=== PATIENT | male | born 1985 | race Caucasian/White ===

== ENCOUNTER 2021-07-16 10:12 | Inpatient (IN) | payer MEDICAID, OTHER ==
[~2021-07-16] VITALS: Ht 172.7 cm; Wt 104.9 kg
[2021-07-16 12:48] LABS: ANION GAP 7 mmol/L (8-16); CALCIUM, TOTAL 9.1 mg/dL (8.8-10.5); CARBON DIOXIDE 31 mmol/L (22-29); CHLORIDE 103 mmol/L (98-107); CREATININE 0.86 mg/dL (0.60-1.30); GLOMERULAR FILTR. RATE CALC > 60 mL/min (>60); GLUCOSE,RANDOM 152 mg/dL (70-110); POTASSIUM 3.9 mmol/L (3.5-5.1); SODIUM SERUM 141 mmol/L (136-145); UREA NITROGEN, BLOOD 17 mg/dL (7-18)
[2021-07-16 12:53] LABS: ALANINE AMINOTRANSFERASE 39 U/L (12-78); ALBUMIN 4.2 g/dL (3.4-5.0); ALKALINE PHOSPHATASE 85 U/L (46-116); ASPARTATE AMINOTRANSFERASE 23 U/L (15-37); TOTAL PROTEIN, SERUM 8.3 g/dL (6.4-8.2)
[2021-07-16 13:02] LABS: AMPHET/METH SCREEN,URINE POSITIVE (NEGATIVE); BARBITURATE SCREEN, URINE NEGATIVE (NEGATIVE); BENZODIAZEPINES SCREEN,URINE NEGATIVE (NEGATIVE); CANNABINOID SCREEN,URINE POSITIVE (NEGATIVE); COCAINE SCREEN,URINE NEGATIVE (NEGATIVE); METHADONE SCREEN, URINE NEGATIVE (NEGATIVE); OPIATE SCREEN,URINE NEGATIVE (NEGATIVE)
[2021-07-16 13:03] LABS: PHENCYCLIDINE SCREEN,URINE NEGATIVE (NEGATIVE)
[2021-07-16 14:16] LABS: BASOPHILS % (AUTO) 0.3 % (0.0-2.0); HEMATOCRIT 46.4 % (41-53); HEMOGLOBIN 16.7 g/dL (13.5-17.5); LYMPHOCYTES # (AUTO) 1.6 K/uL (1.0-4.8); MEAN CORPUSCULAR HEMOGLOBIN 31.4 pg (26.0-34.0); MEAN CORPUSCULAR HGB CONC 35.9 G/dL (31.0-37.0); MEAN CORPUSCULAR VOLUME 87 fL (80-100); MONOCYTES # (AUTO) 0.4 K/uL (0.1-1.0); MONOCYTES % (AUTO) 4.8 % (2.0-9.0); NEUTROPHILS # (AUTO) 7.1 K/uL (1.8-7.7); NEUTROPHILS % (AUTO) 76.9 % (40.0-70.0); PLATELET COUNT (AUTO) 164 K/uL (150-450); RED BLOOD CELL COUNT(AUTO) 5.31 MIL/uL (4.50-5.90); RED CELL DISTRIBUTION WIDTH 13.5 % (11.5-14.5)
[2021-07-16 15:25] LABS: COVID AG,FIA SOURCE NASOPHARYNGEAL
[2021-07-16] MEDS ORDERED: ZOLPIDEM TARTRATE 10 MG TABLET PO PRN (15:30)
[2021-07-16] MEDS ORDERED: HALOPERIDOL 5 MG TABLET PO PRN (15:30)
[2021-07-16] MEDS ORDERED: PNEUMOCOCCAL VACCINE POLYVALENT 0.5 ML VIAL [PPSV23] IM. ONE (17:45)
[2021-07-16] MEDS ORDERED: DEXTROSE 50%-WATER 25 GM/50 ML SYRINGE IVP PRN (17:45)
[2021-07-16 17:54] VITALS: BP 155/101
[2021-07-16 21:31] LABS: GLUCOMETER DEV NAME(LOC) 3E.C; GLUCOSE,POINT OF CARE 213 MG/DL (70-110)
[2021-07-17 06:06] LABS: GLUCOMETER DEV NAME(LOC) 3E.C; GLUCOSE,POINT OF CARE 175 MG/DL (70-110)
[2021-07-17 08:01] VITALS: BP 142/97
[2021-07-17] MEDS ORDERED: GuaiFENesin/D-METHORPHAN [SUGAR-FREE] 200-20MG/10 ML SYRUP UDCUP PO PRN (11:45)
[2021-07-17] MEDS ORDERED: ACETAMINOPHEN 325 MG TABLET PO PRN (11:45)
[2021-07-17] MEDS ORDERED: MAG HYDROX/AL HYDROX/SIMETH ES 30 ML SUSPENSION UDCUP PO PRN (11:45)
[2021-07-17] MEDS ORDERED: PETROLATUM,WHITE 28 GM JELLY TP PRN (11:45)
[2021-07-17] MEDS ORDERED: IBUPROFEN 400 MG TABLET PO PRN (11:45)
[2021-07-17] MEDS ORDERED: DOCUSATE SODIUM 100 MG CAPSULE PO PRN (11:45)
[2021-07-17] MEDS ORDERED: ALBUTEROL SULFATE HFA 90 MCG/PUFF 8 GM INHALER IH PRN (11:45)
[2021-07-17] MEDS ORDERED: ONDANSETRON HCL 4 MG TABLET PO PRN (11:45)
[2021-07-17] MEDS ORDERED: CloNIDine HCL 0.1 MG TABLET PO PRN (11:45)
[2021-07-17] MEDS ORDERED: NICOTINE 14 MG/24 HOUR PATCH TD PRN (11:45)
[2021-07-17] MEDS ORDERED: MAGNESIUM HYDROXIDE SUSPENSION 30 ML UDCUP PO PRN (11:45)
[2021-07-17] MEDS ORDERED: LOPERAMIDE HCL 2 MG CAPSULE PO PRN (11:45)
[2021-07-17 12:57] LABS: GLUCOMETER DEV NAME(LOC) 3E.C; GLUCOSE,POINT OF CARE 204 MG/DL (70-110)
[2021-07-17] MEDS ORDERED: HALOPERIDOL LACTATE 5 MG/ML VIAL ONE (13:15)
[2021-07-17] MEDS ORDERED: DiphenhydrAMINE HCL 50 MG/ML VIAL ONE (13:15)
[2021-07-17] MEDS ORDERED: LORazepam 2 MG/ML VIAL ONE (13:15)
[2021-07-17] MEDS ORDERED: DiphenhydrAMINE HCL 50 MG/ML VIAL IM ONE (13:45)
[2021-07-17] MEDS ORDERED: HALOPERIDOL LACTATE 5 MG/ML VIAL IM ONE (13:45)
[2021-07-17] MEDS ORDERED: LORazepam 2 MG/ML VIAL IM ONE (13:45)
[2021-07-17] MEDS ORDERED: BENZ1TAB96 PO (15:31)
[2021-07-17] MEDS ORDERED: HALO5TAB2 PO (15:31)
[2021-07-17] MEDS: BENZTROPINE MESYLATE 1 MG TABLET PO SCH (17:00)
[2021-07-17] MEDS: HALOPERIDOL 5 MG TABLET PO SCH (17:00)
[2021-07-17 17:56] LABS: GLUCOMETER DEV NAME(LOC) 3E.C; GLUCOSE,POINT OF CARE 163 MG/DL (70-110)
[2021-07-17 21:00] LABS: GLUCOMETER DEV NAME(LOC) 3E.C; GLUCOSE,POINT OF CARE 185 MG/DL (70-110)
[2021-07-18] MEDS: BENZTROPINE MESYLATE 1 MG TABLET PO SCH ×3 (09:00→17:55)
[2021-07-18] MEDS: HALOPERIDOL 5 MG TABLET PO SCH ×2 (09:00→16:26)
[2021-07-18] MEDS: INSULIN LISPRO 100 UNITS/ML SQ PRN (12:45)
[2021-07-18 12:51] LABS: GLUCOMETER DEV NAME(LOC) 3E.C; GLUCOSE,POINT OF CARE 217 MG/DL (70-110)
[2021-07-18 16:23] VITALS: BP 140/86
[2021-07-18] MEDS: LORazepam 2 MG TABLET PO PRN (19:30)
[2021-07-19 06:41] LABS: GLUCOMETER DEV NAME(LOC) 3E.C; GLUCOSE,POINT OF CARE 118 MG/DL (70-110)
[2021-07-19] MEDS: INSULIN LISPRO 100 UNITS/ML SQ PRN (06:44)
[2021-07-19 08:21] VITALS: BP 115/82
[2021-07-19] MEDS: BENZTROPINE MESYLATE 1 MG TABLET PO SCH ×2 (08:56→16:34)
[2021-07-19] MEDS: HALOPERIDOL 5 MG TABLET PO SCH ×2 (08:56→16:34)
[2021-07-19 11:31] LABS: GLUCOMETER DEV NAME(LOC) 3E.C; GLUCOSE,POINT OF CARE 143 MG/DL (70-110)
[2021-07-19 16:08] VITALS: BP 141/78
[2021-07-19] MEDS: LORazepam 2 MG TABLET PO PRN (19:00)
[2021-07-20 04:46] LABS: GLUCOMETER DEV NAME(LOC) 3E.C; GLUCOSE,POINT OF CARE 116 MG/DL (70-110)
[2021-07-20 08:08] VITALS: BP 140/74
[2021-07-20] MEDS: BENZTROPINE MESYLATE 1 MG TABLET PO SCH ×2 (10:19→16:37)
[2021-07-20] MEDS: HALOPERIDOL 5 MG TABLET PO SCH ×2 (10:19→16:37)
[2021-07-20] MEDS: LORazepam 2 MG TABLET PO PRN (18:30)
[2021-07-21] MEDS: HALOPERIDOL 5 MG TABLET PO SCH ×2 (08:05→17:00)
[2021-07-21] MEDS: BENZTROPINE MESYLATE 1 MG TABLET PO SCH ×2 (08:09→17:00)
[2021-07-21 16:50] VITALS: BP 129/84
[2021-07-22] MEDS: HALOPERIDOL 5 MG TABLET PO SCH ×2 (08:32→16:04)
[2021-07-22] MEDS: BENZTROPINE MESYLATE 1 MG TABLET PO SCH ×2 (08:33→16:04)
[2021-07-22 11:26] LABS: GLUCOMETER DEV NAME(LOC) 3E.C; GLUCOSE,POINT OF CARE 123 MG/DL (70-110)
[2021-07-22 16:08] VITALS: BP 141/91
[2021-07-22 17:01] LABS: GLUCOMETER DEV NAME(LOC) 3E.C; GLUCOSE,POINT OF CARE 124 MG/DL (70-110)
[2021-07-23] MEDS: LORazepam 2 MG TABLET PO PRN ×3 (07:43→20:50)
[2021-07-23 08:00] VITALS: BP 104/77
[2021-07-23 08:09] LABS: COVID AG,FIA SOURCE NASAL SWAB
[2021-07-23] MEDS: BENZTROPINE MESYLATE 1 MG TABLET PO SCH ×2 (08:12→16:04)
[2021-07-23] MEDS: HALOPERIDOL 5 MG TABLET PO SCH ×2 (08:12→16:04)
[2021-07-23 11:26] LABS: GLUCOMETER DEV NAME(LOC) 3E.C; GLUCOSE,POINT OF CARE 133 MG/DL (70-110)
[2021-07-23] MEDS: INSULIN LISPRO 100 UNITS/ML SQ PRN (11:57)
[2021-07-23 16:03] VITALS: BP 135/90
[2021-07-23 16:31] LABS: GLUCOMETER DEV NAME(LOC) 3E.C; GLUCOSE,POINT OF CARE 192 MG/DL (70-110)
[2021-07-24 06:41] LABS: GLUCOMETER DEV NAME(LOC) 3E.I 2; GLUCOSE,POINT OF CARE 212 MG/DL (70-110)
[2021-07-24] MEDS: INSULIN LISPRO 100 UNITS/ML SQ PRN (07:02)
[2021-07-24 08:32] VITALS: BP 113/83
[2021-07-24] MEDS: HALOPERIDOL 5 MG TABLET PO SCH ×2 (09:11→16:29)
[2021-07-24] MEDS: BENZTROPINE MESYLATE 1 MG TABLET PO SCH ×2 (09:11→16:28)
[2021-07-24 11:47] LABS: GLUCOMETER DEV NAME(LOC) 3E.I 2; GLUCOSE,POINT OF CARE 183 MG/DL (70-110)
[2021-07-24 16:05] VITALS: BP 113/83
[2021-07-24] MEDS: LORazepam 2 MG TABLET PO PRN (16:28)
[2021-07-25 09:00] VITALS: BP 136/104
[2021-07-25] MEDS: HALOPERIDOL 5 MG TABLET PO SCH ×2 (10:02→17:23)
[2021-07-25] MEDS: BENZTROPINE MESYLATE 1 MG TABLET PO SCH ×2 (10:03→17:20)
[2021-07-25] MEDS ORDERED: HALOPERIDOL DECANOATE 100 MG/ML VIAL IM SCH (11:30)
[2021-07-25 12:06] LABS: GLUCOMETER DEV NAME(LOC) 3E.C; GLUCOSE,POINT OF CARE 249 MG/DL (70-110)
[2021-07-25] MEDS: LORazepam 2 MG TABLET PO PRN (17:20)
[2021-07-26 08:45] VITALS: BP 117/83
[2021-07-26] MEDS: HALOPERIDOL 5 MG TABLET PO SCH ×2 (10:15→20:24)
[2021-07-26] MEDS: BENZTROPINE MESYLATE 1 MG TABLET PO SCH ×2 (10:15→20:24)
[2021-07-26 10:56] LABS: GLUCOMETER DEV NAME(LOC) 3E.C; GLUCOSE,POINT OF CARE 113 MG/DL (70-110)
[2021-07-26 16:06] VITALS: BP 119/78
[2021-07-27 08:01] VITALS: BP 127/83
[2021-07-27] MEDS: HALOPERIDOL 5 MG TABLET PO SCH (08:21)
[2021-07-27] MEDS: BENZTROPINE MESYLATE 1 MG TABLET PO SCH (08:21)
[2021-07-27] MEDS: LORazepam 2 MG TABLET PO PRN (08:21)
[2021-07-27] MEDS ORDERED: HALO100V4 IM (11:31)
[2021-07-27 11:36] LABS: GLUCOMETER DEV NAME(LOC) 3E.C; GLUCOSE,POINT OF CARE 157 MG/DL (70-110)
[2021-07-27] MEDS: INSULIN LISPRO 100 UNITS/ML SQ PRN (12:16)
== END 2021-07-27 13:20 | disposition home or self-care (01) | DRG 750 ==
LOC: EMS 10:12 → 3EC 15:03 → EMS 17:17
PROVIDERS: ADMIT Psychiatry & Neurology Psychiatry; ATTEND Psychiatry & Neurology Psychiatry
DX: F20.0 Paranoid schizophrenia (principal); E11.9 Type 2 diabetes mellitus without complications; G47.00 Insomnia, unspecified; E66.9 Obesity, unspecified; F10.10 Alcohol abuse, uncomplicated; F12.10 Cannabis abuse, uncomplicated; F15.10 Other stimulant abuse, uncomplicated; F14.10 Cocaine abuse, uncomplicated; Z20.822 Contact with and (suspected) exposure to COVID-19; Y90.9 Presence of alcohol in blood, level not specified; Z71.51 Drug abuse counseling and surveillance of drug abuser; Z59.01 Sheltered homelessness; Z91.51 Personal history of suicidal behavior; Z71.41 Alcohol abuse counseling and surveillance of alcoholic; Z79.4 Long term (current) use of insulin; Z68.34 Body mass index [BMI] 34.0-34.9, adult; Z28.21 Immunization not carried out because of patient refusal
CPT/HCPCS: 80053; 82962; 85025; 99285; G0480; J1200; J1630; J1631; J2060

== ENCOUNTER 2021-08-01 16:44 | Inpatient (IN) | payer MEDICAID, OTHER ==
[~2021-08-01] VITALS: Ht 175.3 cm; Wt 105.7 kg
[~2021-08-01 16:44] MED LIST: BENZ1TAB96 PO; HALO100V36 IM
[2021-08-01 17:40] LABS: BASOPHILS % (AUTO) 0.6 % (0.0-2.0); EOSINOPHILS % (AUTO) 2.5 % (1.0-6.0); HEMATOCRIT 45.8 % (41-53); HEMOGLOBIN 16.3 g/dL (13.5-17.5); LYMPHOCYTES # (AUTO) 1.8 K/uL (1.0-4.8); LYMPHOCYTES % (AUTO) 18.4 % (22.0-44.0); MEAN CORPUSCULAR HEMOGLOBIN 31.1 pg (26.0-34.0); MEAN CORPUSCULAR HGB CONC 35.5 G/dL (31.0-37.0); MEAN CORPUSCULAR VOLUME 88 fL (80-100); MONOCYTES # (AUTO) 0.7 K/uL (0.1-1.0); MONOCYTES % (AUTO) 6.8 % (2.0-9.0); NEUTROPHILS # (AUTO) 7.1 K/uL (1.8-7.7); NEUTROPHILS % (AUTO) 71.7 % (40.0-70.0); PLATELET COUNT (AUTO) 230 K/uL (150-450); RED BLOOD CELL COUNT(AUTO) 5.23 MIL/uL (4.50-5.90); RED CELL DISTRIBUTION WIDTH 13.3 % (11.5-14.5)
[2021-08-01 17:45] LABS: ANION GAP 5 mmol/L (8-16); CALCIUM, TOTAL 8.9 mg/dL (8.8-10.5); CARBON DIOXIDE 32 mmol/L (22-29); CHLORIDE 100 mmol/L (98-107); GLOMERULAR FILTR. RATE CALC > 60 mL/min (>60); GLUCOSE,RANDOM 141 mg/dL (70-110); POTASSIUM 3.6 mmol/L (3.5-5.1); SODIUM SERUM 137 mmol/L (136-145); UREA NITROGEN, BLOOD 12 mg/dL (7-18)
[2021-08-01 17:50] LABS: ALANINE AMINOTRANSFERASE 40 U/L (12-78); ALBUMIN 4.3 g/dL (3.4-5.0); ALKALINE PHOSPHATASE 93 U/L (46-116); ASPARTATE AMINOTRANSFERASE 23 U/L (15-37); BILIRUBIN,TOTAL 0.7 mg/dL (0.1-1.0); TOTAL PROTEIN, SERUM 8.7 g/dL (6.4-8.2)
[2021-08-01 17:50] LABS: COVID AG,FIA SOURCE NASOPHARYNGEAL
[2021-08-01] MEDS ORDERED: HALOPERIDOL 5 MG TABLET PO PRN (18:00)
[2021-08-01] MEDS ORDERED: ZOLPIDEM TARTRATE 10 MG TABLET PO PRN (18:00)
[2021-08-01 18:03] LABS: AMPHET/METH SCREEN,URINE NEGATIVE (NEGATIVE); BARBITURATE SCREEN, URINE NEGATIVE (NEGATIVE); BENZODIAZEPINES SCREEN,URINE NEGATIVE (NEGATIVE); CANNABINOID SCREEN,URINE POSITIVE (NEGATIVE); COCAINE SCREEN,URINE NEGATIVE (NEGATIVE); METHADONE SCREEN, URINE NEGATIVE (NEGATIVE); OPIATE SCREEN,URINE NEGATIVE (NEGATIVE); PHENCYCLIDINE SCREEN,URINE NEGATIVE (NEGATIVE)
[2021-08-01 19:50] VITALS: BP 123/97
[2021-08-01 23:43] LABS: HEMOGLOBIN A1C 6.4 % (3.8-5.6)
[2021-08-02 04:00] VITALS: BP 117/84
[2021-08-02 06:31] LABS: GLUCOMETER DEV NAME(LOC) BV3N.; GLUCOSE,POINT OF CARE 129 MG/DL (70-110)
[2021-08-02 08:34] VITALS: BP 112/71
[2021-08-02] MEDS: HALOPERIDOL 5 MG TABLET PO SCH ×2 (09:16→16:37)
[2021-08-02] MEDS: BENZTROPINE MESYLATE 1 MG TABLET PO SCH ×2 (09:16→16:37)
[2021-08-02] MEDS: LORazepam 2 MG TABLET PO PRN ×2 (09:16→16:36)
[2021-08-02] MEDS ORDERED: ACETAMINOPHEN 325 MG TABLET PO PRN (11:30)
[2021-08-02] MEDS ORDERED: LOPERAMIDE HCL 2 MG CAPSULE PO PRN (11:30)
[2021-08-02] MEDS ORDERED: ONDANSETRON HCL 4 MG TABLET PO PRN (11:30)
[2021-08-02] MEDS ORDERED: DOCUSATE SODIUM 100 MG CAPSULE PO PRN (11:30)
[2021-08-02] MEDS ORDERED: NICOTINE 14 MG/24 HOUR PATCH TD PRN (11:30)
[2021-08-02] MEDS ORDERED: PETROLATUM,WHITE 28 GM JELLY TP PRN (11:30)
[2021-08-02] MEDS ORDERED: ALBUTEROL SULFATE HFA 90 MCG/PUFF 8 GM INHALER IH PRN (11:30)
[2021-08-02] MEDS ORDERED: MAG HYDROX/AL HYDROX/SIMETH ES 30 ML SUSPENSION UDCUP PO PRN (11:30)
[2021-08-02] MEDS ORDERED: GuaiFENesin/D-METHORPHAN [SUGAR-FREE] 200-20MG/10 ML SYRUP UDCUP PO PRN (11:30)
[2021-08-02] MEDS ORDERED: CloNIDine HCL 0.1 MG TABLET PO PRN (11:30)
[2021-08-02] MEDS ORDERED: IBUPROFEN 400 MG TABLET PO PRN (11:30)
[2021-08-02] MEDS ORDERED: MAGNESIUM HYDROXIDE SUSPENSION 30 ML UDCUP PO PRN (11:30)
[2021-08-02 11:36] LABS: GLUCOMETER DEV NAME(LOC) BV3N.; GLUCOSE,POINT OF CARE 137 MG/DL (70-110)
[2021-08-02 16:11] VITALS: BP 104/67
[2021-08-02 20:20] LABS: GLUCOMETER DEV NAME(LOC) BV3N.; GLUCOSE,POINT OF CARE 191 MG/DL (70-110)
[2021-08-03 05:17] VITALS: BP 118/85
[2021-08-03 06:56] LABS: GLUCOMETER DEV NAME(LOC) BV3N.; GLUCOSE,POINT OF CARE 111 MG/DL (70-110)
[2021-08-03 08:27] VITALS: BP 110/73
[2021-08-03] MEDS: HALOPERIDOL 5 MG TABLET PO SCH ×2 (09:04→17:07)
[2021-08-03] MEDS: LORazepam 2 MG TABLET PO PRN ×2 (09:04→23:56)
[2021-08-03] MEDS: BENZTROPINE MESYLATE 1 MG TABLET PO SCH ×2 (09:04→17:07)
[2021-08-03 11:16] LABS: GLUCOMETER DEV NAME(LOC) BV3N.; GLUCOSE,POINT OF CARE 130 MG/DL (70-110)
[2021-08-03 16:15] VITALS: BP 111/73
[2021-08-04 00:03] VITALS: BP 108/67
[2021-08-04 08:17] VITALS: BP 108/62
[2021-08-04] MEDS: LORazepam 2 MG TABLET PO PRN ×2 (08:40→17:11)
[2021-08-04] MEDS: HALOPERIDOL 5 MG TABLET PO SCH ×2 (08:41→17:11)
[2021-08-04] MEDS: BENZTROPINE MESYLATE 1 MG TABLET PO SCH ×2 (08:41→17:11)
[2021-08-04 16:13] VITALS: BP 109/71
[2021-08-05 04:56] VITALS: BP 136/78
[2021-08-05 08:17] VITALS: BP 120/75
[2021-08-05] MEDS: BENZTROPINE MESYLATE 1 MG TABLET PO SCH ×2 (08:17→17:14)
[2021-08-05] MEDS: HALOPERIDOL 5 MG TABLET PO SCH ×2 (08:17→17:14)
[2021-08-05] MEDS: LORazepam 2 MG TABLET PO PRN ×2 (08:17→17:14)
[2021-08-05 16:15] VITALS: BP 126/80
[2021-08-06 06:59] VITALS: BP 122/78
[2021-08-06] MEDS: BENZTROPINE MESYLATE 1 MG TABLET PO SCH ×2 (08:22→16:45)
[2021-08-06] MEDS: HALOPERIDOL 5 MG TABLET PO SCH ×2 (08:22→16:45)
[2021-08-06 08:24] VITALS: BP 104/69
[2021-08-06 16:06] VITALS: BP 114/78
[2021-08-07 05:48] VITALS: BP 109/64
[2021-08-07 08:12] VITALS: BP 108/59
[2021-08-07] MEDS: BENZTROPINE MESYLATE 1 MG TABLET PO SCH ×2 (08:39→16:28)
[2021-08-07] MEDS: HALOPERIDOL 5 MG TABLET PO SCH ×2 (08:39→16:28)
[2021-08-07] MEDS: LORazepam 2 MG TABLET PO PRN (08:39)
[2021-08-07 16:13] VITALS: BP 140/86
[2021-08-07 20:35] LABS: GLUCOMETER DEV NAME(LOC) BV3N.; GLUCOSE,POINT OF CARE 200 MG/DL (70-110)
[2021-08-08 05:04] VITALS: BP 102/64
[2021-08-08] MEDS: LORazepam 2 MG TABLET PO PRN ×2 (08:18→16:25)
[2021-08-08] MEDS: BENZTROPINE MESYLATE 1 MG TABLET PO SCH ×2 (08:18→16:25)
[2021-08-08] MEDS: HALOPERIDOL 5 MG TABLET PO SCH ×2 (08:18→16:25)
[2021-08-08 08:25] VITALS: BP 105/61
[2021-08-08] MEDS ORDERED: DiphenhydrAMINE HCL 50 MG/ML VIAL ONE (09:04)
[2021-08-08] MEDS ORDERED: LORazepam 2 MG/ML VIAL ONE (09:04)
[2021-08-08] MEDS ORDERED: LORazepam 2 MG/ML VIAL IM ONE (09:15)
[2021-08-08] MEDS ORDERED: ChlorproMAZINE HCL 50 MG/2 ML AMP IM ONE (09:15)
[2021-08-08] MEDS ORDERED: DiphenhydrAMINE HCL 50 MG/ML VIAL IM ONE (09:15)
[2021-08-08 16:17] VITALS: BP 109/70
[2021-08-09 02:22] VITALS: BP 112/81
[2021-08-09 08:34] VITALS: BP 108/64
[2021-08-09] MEDS: LORazepam 2 MG TABLET PO PRN ×2 (08:35→16:40)
[2021-08-09] MEDS: HALOPERIDOL 5 MG TABLET PO SCH ×2 (08:35→16:40)
[2021-08-09] MEDS: BENZTROPINE MESYLATE 1 MG TABLET PO SCH ×2 (08:35→16:40)
[2021-08-09 16:16] VITALS: BP 100/68
[2021-08-10 02:17] VITALS: BP 110/83
[2021-08-10 08:30] VITALS: BP 118/69
[2021-08-10] MEDS: HALOPERIDOL 5 MG TABLET PO SCH ×2 (09:29→16:50)
[2021-08-10] MEDS: BENZTROPINE MESYLATE 1 MG TABLET PO SCH ×2 (09:29→16:50)
[2021-08-10 16:08] VITALS: BP 118/82
[2021-08-11 04:07] VITALS: BP 101/55
[2021-08-11 08:10] VITALS: BP 108/68
[2021-08-11] MEDS: BENZTROPINE MESYLATE 1 MG TABLET PO SCH ×2 (08:34→16:51)
[2021-08-11] MEDS: HALOPERIDOL 5 MG TABLET PO SCH ×2 (08:34→16:46)
[2021-08-11] MEDS: LORazepam 2 MG TABLET PO PRN ×2 (08:34→16:51)
[2021-08-11 16:14] VITALS: BP 121/84
[2021-08-12 04:30] VITALS: BP 118/76
[2021-08-12] MEDS: HALOPERIDOL 5 MG TABLET PO SCH ×2 (08:26→17:01)
[2021-08-12] MEDS: LORazepam 2 MG TABLET PO PRN ×2 (08:26→17:01)
[2021-08-12] MEDS: BENZTROPINE MESYLATE 1 MG TABLET PO SCH ×2 (08:26→17:01)
[2021-08-12 08:28] VITALS: BP 109/66
[2021-08-12 16:36] VITALS: BP 104/63
[2021-08-13 04:18] VITALS: BP 117/83
[2021-08-13] MEDS: HALOPERIDOL 5 MG TABLET PO SCH ×2 (08:10→16:12)
[2021-08-13] MEDS: BENZTROPINE MESYLATE 1 MG TABLET PO SCH ×2 (08:10→16:12)
[2021-08-13 08:11] VITALS: BP 123/72
[2021-08-13] MEDS: LORazepam 2 MG TABLET PO PRN ×2 (08:11→16:12)
[2021-08-13 16:09] VITALS: BP 108/66
[2021-08-14 00:32] VITALS: BP 122/84
[2021-08-14 08:22] VITALS: BP 119/68
[2021-08-14] MEDS: BENZTROPINE MESYLATE 1 MG TABLET PO SCH ×2 (08:30→16:25)
[2021-08-14] MEDS: HALOPERIDOL 5 MG TABLET PO SCH ×2 (08:30→16:25)
[2021-08-14] MEDS: LORazepam 2 MG TABLET PO PRN ×2 (08:30→16:25)
[2021-08-14 16:16] VITALS: BP 140/80
[2021-08-15 00:49] VITALS: BP 108/79
[2021-08-15] MEDS: HALOPERIDOL 5 MG TABLET PO SCH ×2 (08:22→16:34)
[2021-08-15] MEDS: LORazepam 2 MG TABLET PO PRN (08:22)
[2021-08-15] MEDS: BENZTROPINE MESYLATE 1 MG TABLET PO SCH ×2 (08:22→16:34)
[2021-08-15 08:24] VITALS: BP 111/71
[2021-08-15 16:08] VITALS: BP 134/85
[2021-08-16 03:28] VITALS: BP 125/84
[2021-08-16 08:10] VITALS: BP 116/74
[2021-08-16] MEDS: BENZTROPINE MESYLATE 1 MG TABLET PO SCH ×2 (09:00→16:06)
[2021-08-16] MEDS: HALOPERIDOL 5 MG TABLET PO SCH ×2 (09:00→16:06)
[2021-08-16 11:51] LABS: GLUCOMETER DEV NAME(LOC) BV3N.; GLUCOSE,POINT OF CARE 175 MG/DL (70-110)
[2021-08-16 16:29] VITALS: BP 110/70
[2021-08-16 16:36] LABS: GLUCOMETER DEV NAME(LOC) BV3N.; GLUCOSE,POINT OF CARE 164 MG/DL (70-110)
[2021-08-17 05:04] VITALS: BP 108/70
[2021-08-17 08:15] VITALS: BP 124/70
[2021-08-17] MEDS: HALOPERIDOL 5 MG TABLET PO SCH (08:17)
[2021-08-17] MEDS: BENZTROPINE MESYLATE 1 MG TABLET PO SCH (08:17)
[2021-08-17] MEDS: LORazepam 2 MG TABLET PO PRN (08:17)
[2021-08-17] MEDS ORDERED: HALO100V36 IM (09:43)
[2021-08-17] MEDS ORDERED: HALO5TAB23 PO (09:43)
[2021-08-17] MEDS ORDERED: BENZ1TAB96 PO (09:43)
== END 2021-08-17 14:00 | disposition home or self-care (01) | DRG 750 ==
LOC: EMS 16:44 → B3A 19:35
PROVIDERS: ADMIT Psychiatry & Neurology Psychiatry; ATTEND Psychiatry & Neurology Psychiatry
DX: F20.0 Paranoid schizophrenia (principal); E11.9 Type 2 diabetes mellitus without complications; Z20.822 Contact with and (suspected) exposure to COVID-19; F19.10 Other psychoactive substance abuse, uncomplicated; F15.10 Other stimulant abuse, uncomplicated; F10.10 Alcohol abuse, uncomplicated; G47.00 Insomnia, unspecified; Y90.9 Presence of alcohol in blood, level not specified; E66.9 Obesity, unspecified; F12.10 Cannabis abuse, uncomplicated; Z91.51 Personal history of suicidal behavior; Z68.34 Body mass index [BMI] 34.0-34.9, adult; Z79.84 Long term (current) use of oral hypoglycemic drugs
CPT/HCPCS: 80053; 82962; 83036; 85025; 87081; 99285; G0480; J1200; J2060; J3230

== ENCOUNTER 2022-07-31 14:36 | Emergency (ER) | payer MEDICAID, OTHER ==
[~2022-07-31] VITALS: Ht 175.3 cm; Wt 109.1 kg
[~2022-07-31 14:36] MED LIST changes: +BENZ1TAB84 PO; -BENZ1TAB96 PO; +HALO5TAB23 PO
[2022-07-31 15:00] VITALS: BP 126/85
[2022-07-31 15:37] LABS: AMPHET/METH SCREEN,URINE NEGATIVE (NEGATIVE); BARBITURATE SCREEN, URINE NEGATIVE (NEGATIVE); BENZODIAZEPINES SCREEN,URINE NEGATIVE (NEGATIVE); CANNABINOID SCREEN,URINE NEGATIVE (NEGATIVE); COCAINE SCREEN,URINE NEGATIVE (NEGATIVE); METHADONE SCREEN, URINE NEGATIVE (NEGATIVE); OPIATE SCREEN,URINE NEGATIVE (NEGATIVE); PHENCYCLIDINE SCREEN,URINE NEGATIVE (NEGATIVE)
[2022-07-31 15:48] LABS: BASOPHILS % (AUTO) 0.7 % (0.0-2.0); EOSINOPHILS % (AUTO) 3.1 % (1.0-6.0); HEMATOCRIT 46.9 % (41-53); LYMPHOCYTES # (AUTO) 1.3 K/uL (1.0-4.8); LYMPHOCYTES % (AUTO) 17.9 % (22.0-44.0); MEAN CORPUSCULAR HEMOGLOBIN 30.8 pg (26.0-34.0); MEAN CORPUSCULAR HGB CONC 34.2 G/dL (31.0-37.0); MEAN CORPUSCULAR VOLUME 90 fL (80-100); MONOCYTES # (AUTO) 0.5 K/uL (0.1-1.0); MONOCYTES % (AUTO) 6.9 % (2.0-9.0); NEUTROPHILS # (AUTO) 5.3 K/uL (1.8-7.7); NEUTROPHILS % (AUTO) 71.4 % (40.0-70.0); PLATELET COUNT (AUTO) 142 K/uL (150-450); RED CELL DISTRIBUTION WIDTH 13.5 % (11.5-14.5)
[2022-07-31 15:58] LABS: ANION GAP 5 mmol/L (8-16); CALCIUM, TOTAL 8.9 mg/dL (8.8-10.5); CARBON DIOXIDE 30 mmol/L (22-29); CHLORIDE 101 mmol/L (98-107); CREATININE 0.76 mg/dL (0.60-1.30); GLOMERULAR FILTR. RATE CALC > 60 mL/min (>60); GLUCOSE,RANDOM 114 mg/dL (70-110); POTASSIUM 4.3 mmol/L (3.5-5.1); SODIUM SERUM 136 mmol/L (136-145)
[2022-07-31 16:03] LABS: ALANINE AMINOTRANSFERASE 35 U/L (12-78); ALBUMIN 3.9 g/dL (3.4-5.0); ALKALINE PHOSPHATASE 82 U/L (46-116); ASPARTATE AMINOTRANSFERASE 29 U/L (15-37); BILIRUBIN,TOTAL 0.9 mg/dL (0.1-1.0); TOTAL PROTEIN, SERUM 7.4 g/dL (6.4-8.2)
[2022-07-31] MEDS ORDERED: LORazepam 1 MG TABLET PO ONE (16:30)
[2022-07-31] MEDS ORDERED: HALO100V36 IM (16:31)
== END 2022-07-31 16:56 | disposition home or self-care (01) ==
LOC: EMS 14:45
DX: F20.9 Schizophrenia, unspecified (principal); E11.9 Type 2 diabetes mellitus without complications; F12.90 Cannabis use, unspecified, uncomplicated; F15.90 Other stimulant use, unspecified, uncomplicated
CPT/HCPCS: 99284; 80053; 85025; 36415; 80307 ×2; G0480

== ENCOUNTER 2023-04-14 10:40 | Inpatient (IN) | payer MEDICAID, OTHER ==
[~2023-04-14] VITALS: Ht 160 cm; Wt 82.2 kg
[~2023-04-14 10:40] MED LIST changes: -BENZ1TAB84 PO; -HALO5TAB23 PO
[2023-04-14 12:33] LABS: BASOPHILS % (AUTO) 0.4 % (0.0-2.0); HEMATOCRIT 41.7 % (41-53); LYMPHOCYTES # (AUTO) 1.1 K/uL (1.0-4.8); LYMPHOCYTES % (AUTO) 19.3 % (22.0-44.0); MEAN CORPUSCULAR HEMOGLOBIN 30.4 pg (26.0-34.0); MEAN CORPUSCULAR HGB CONC 33.7 G/dL (31.0-37.0); MEAN CORPUSCULAR VOLUME 90 fL (80-100); MONOCYTES # (AUTO) 0.6 K/uL (0.1-1.0); NEUTROPHILS # (AUTO) 3.9 K/uL (1.8-7.7); NEUTROPHILS % (AUTO) 68.3 % (40.0-70.0); PLATELET COUNT (AUTO) 121 K/uL (150-450); RED BLOOD CELL COUNT(AUTO) 4.61 MIL/uL (4.50-5.90); RED CELL DISTRIBUTION WIDTH 13.7 % (11.5-14.5); WHITE BLOOD COUNT (AUTO) 5.7 K/uL (4.5-11.0)
[2023-04-14 12:38] LABS: ANION GAP 4 mmol/L (8-16); CALCIUM, TOTAL 8.8 mg/dL (8.8-10.5); CARBON DIOXIDE 33 mmol/L (22-29); CHLORIDE 104 mmol/L (98-107); GLOMERULAR FILTR. RATE CALC > 60 mL/min (>60); GLUCOSE,RANDOM 64 mg/dL (70-110); POTASSIUM 4.6 mmol/L (3.5-5.1); SODIUM SERUM 141 mmol/L (136-145); UREA NITROGEN, BLOOD 17 mg/dL (7-18)
[2023-04-14 12:45] LABS: ALANINE AMINOTRANSFERASE 32 U/L (12-78); ALBUMIN 3.7 g/dL (3.4-5.0); ALKALINE PHOSPHATASE 92 U/L (46-116); ASPARTATE AMINOTRANSFERASE 26 U/L (15-37); BILIRUBIN,TOTAL 0.3 mg/dL (0.1-1.0); TOTAL PROTEIN, SERUM 6.8 g/dL (6.4-8.2)
[2023-04-14 12:50] LABS: ALCOHOL, BLOOD (SERUM) < 3 mg/dL (0-10)
[2023-04-14] MEDS ORDERED: QUEtiapine FUMARATE 100 MG TABLET PO PRN (13:15)
[2023-04-14] MEDS ORDERED: LORazepam 2 MG TABLET PO PRN (13:15)
[2023-04-14] MEDS ORDERED: ZOLPIDEM TARTRATE 10 MG TABLET PO PRN (13:15)
[2023-04-14 15:36] LABS: COVID AG,FIA SOURCE NASAL SWAB
[2023-04-14 16:04] LABS: SARS-COV2 (COVID) ANTIGEN,FIA Negative (Negative)
[2023-04-14 21:40] VITALS: BP 108/74; PULSE 75; RESP 18; TEMP 96.9; O2SAT 97
[2023-04-15 01:21] LABS: GLUCOMETER DEV NAME(LOC) BV2S.; GLUCOSE,POINT OF CARE 84 MG/DL (70-110)
[2023-04-15] MEDS: INFLUENZA VIRUS VACCINE QVS 2023-24 (6MO+)/PF 60 MCG/0.5 ML SYRINGE IM. ONE (01:30)
[2023-04-15 08:50] VITALS: BP 106/65; PULSE 63; RESP 17; TEMP 97.6; O2SAT 99
[2023-04-15] MEDS: SERTRALINE HCL 50 MG TABLET PO SCH (13:15)
[2023-04-15] MEDS ORDERED: PETROLATUM,WHITE 28 GM JELLY TP PRN (15:45)
[2023-04-15] MEDS ORDERED: LOPERAMIDE HCL 2 MG CAPSULE PO PRN (15:45)
[2023-04-15] MEDS ORDERED: MAGNESIUM HYDROXIDE SUSPENSION 30 ML UDCUP PO PRN (15:45)
[2023-04-15] MEDS ORDERED: GuaiFENesin/D-METHORPHAN [SUGAR-FREE] 200-20MG/10 ML SYRUP UDCUP PO PRN (15:45)
[2023-04-15] MEDS ORDERED: DOCUSATE SODIUM 100 MG CAPSULE PO PRN (15:45)
[2023-04-15] MEDS ORDERED: ACETAMINOPHEN 325 MG TABLET PO PRN (15:45)
[2023-04-15] MEDS ORDERED: MAG HYDROX/ALUMINUM HYD/SIMETH ES 30 ML SUSPENSION UDCUP PO PRN (15:45)
[2023-04-15] MEDS ORDERED: CloNIDine HCL 0.1 MG TABLET PO PRN (15:45)
[2023-04-15] MEDS ORDERED: IBUPROFEN 400 MG TABLET PO PRN (15:45)
[2023-04-15] MEDS ORDERED: ALBUTEROL SULFATE HFA 90 MCG/PUFF 8 GM INHALER IH PRN (15:45)
[2023-04-15] MEDS ORDERED: ONDANSETRON HCL 4 MG TABLET PO PRN (15:45)
[2023-04-16 08:20] VITALS: BP 111/70; PULSE 57; RESP 17; TEMP 97.7; O2SAT 100
[2023-04-16 08:45] LABS: HEMOGLOBIN A1C 4.7 % (3.8-5.6)
[2023-04-16 08:49] LABS: THYROID STIMULATING HORMONE 0.79 uIU/mL (0.36-3.74)
[2023-04-16] MEDS: HALOPERIDOL 10 MG TABLET PO SCH (20:42)
[2023-04-16 20:59] VITALS: BP 123/70; PULSE 64; RESP 18; TEMP 97.1; O2SAT 96
[2023-04-16 21:11] LABS: GLUCOMETER DEV NAME(LOC) BV2S.; GLUCOSE,POINT OF CARE 109 MG/DL (70-110)
[2023-04-17 09:15] LABS: APPEARANCE,URINE CLEAR (CLEAR); BILIRUBIN,URINE NEGATIVE (NEGATIVE); COLOR,URINE LIGHT YELLOW (YELLOW); GLUCOSE, URINE (UA) NEGATIVE (NEGATIVE); KETONES,URINE NEGATIVE (NEGATIVE); LEUKOCYTE ESTERASE ,URINE NEGATIVE (NEGATIVE); NITRATE,URINE NEGATIVE (NEGATIVE); OCCULT BLOOD,URINE NEGATIVE (NEGATIVE); PH,URINE 6.5 (5.0-8.0); PH,URINE DRUG SCREEN 6.5 (5.0-8.0); PROTEIN,URINE NEGATIVE (NEGATIVE); SPECIFIC GRAVITIY, URINE 1.012 (1.003-1.030); UROBILINOGEN,URINE <=1.0 mg/dL (<=1.0)
[2023-04-17 09:21] LABS: ALCOHOL, URINE DRUG SCREEN NEGATIVE (NEGATIVE); AMPHET/METH SCREEN,URINE NEGATIVE (NEGATIVE); BARBITURATE SCREEN, URINE NEGATIVE (NEGATIVE); BENZODIAZEPINES SCREEN,URINE NEGATIVE (NEGATIVE); CANNABINOID SCREEN,URINE NEGATIVE (NEGATIVE); COCAINE SCREEN,URINE NEGATIVE (NEGATIVE); METHADONE SCREEN, URINE NEGATIVE (NEGATIVE); OPIATE SCREEN,URINE NEGATIVE (NEGATIVE); PHENCYCLIDINE SCREEN,URINE NEGATIVE (NEGATIVE)
[2023-04-17 09:26] VITALS: BP 116/62; PULSE 56; RESP 18; TEMP 97.5; O2SAT 100
[2023-04-17 20:24] VITALS: BP 106/67; PULSE 61; RESP 18; TEMP 96.3; O2SAT 99
[2023-04-18 08:45] VITALS: BP 116/69; PULSE 62; RESP 19; TEMP 97.8; O2SAT 100
[2023-04-18 21:39] VITALS: BP 100/56; PULSE 67; RESP 17; TEMP 97.1; O2SAT 98
[2023-04-19 08:15] VITALS: BP 111/74; PULSE 57; RESP 17; TEMP 98.7; O2SAT 100
[2023-04-19 20:22] VITALS: BP 105/62; PULSE 59; RESP 18; TEMP 97.9; O2SAT 98
[2023-04-20 09:41] VITALS: BP 105/63; PULSE 63; RESP 17; TEMP 97.8; O2SAT 100
[2023-04-20 21:27] VITALS: BP 108/76; PULSE 86; RESP 17; TEMP 98.1; O2SAT 99
[2023-04-21 08:06] VITALS: BP 101/65; PULSE 55; RESP 16; TEMP 97.6; O2SAT 99
[2023-04-21 15:56] LABS: GLUCOMETER DEV NAME(LOC) POC.BV; POC SARS-COV2 AG, FIA NEGATIVE (NEGATIVE)
[2023-04-21] MEDS: NICOTINE 14 MG/24 HOUR PATCH TD PRN (17:47)
[2023-04-21] MEDS ORDERED: SERT-158 PO (19:13)
[2023-04-21] MEDS ORDERED: HALO10TA21 PO (19:14)
[2023-04-21 21:14] VITALS: BP 108/59; PULSE 70; RESP 17; TEMP 97.6; O2SAT 97
[2023-04-22 03:31] LABS: GLUCOMETER DEV NAME(LOC) POC.BV; POC SARS-COV2 AG, FIA NEGATIVE (NEGATIVE)
[2023-04-22] MEDS ORDERED: HALO10TA21 PO (12:44)
[2023-04-22] MEDS ORDERED: SERT-439 PO (12:44)
== END 2023-04-22 08:45 | disposition home or self-care (01) | DRG 750 ==
LOC: EMS 10:47 → B2S 14:27
PROVIDERS: ADMIT Psychiatry & Neurology Psychiatry; ATTEND Psychiatry & Neurology Psychiatry
PROC: GZHZZZZ Group Psychotherapy (ICD-10-PCS; principal; 2023-04-16)
DX: F20.0 Paranoid schizophrenia (principal); D69.6 Thrombocytopenia, unspecified; R45.851 Suicidal ideations; E11.9 Type 2 diabetes mellitus without complications; Z20.822 Contact with and (suspected) exposure to COVID-19; G47.00 Insomnia, unspecified; F17.200 Nicotine dependence, unspecified, uncomplicated; Z59.00 Homelessness unspecified; Z79.899 Other long term (current) drug therapy
CPT/HCPCS: 80053; 80061; 80307; 81003; 82962; 83036; 84443; 85025; 99285; G0480